=== PATIENT | female | born 1980 | race Two or more races ===

== ENCOUNTER 2022-01-30 09:01 | Emergency (ER) | payer OTHER ==
[~2022-01-30] VITALS: Ht 157.5 cm; Wt 122.5 kg
== END 2022-01-30 13:09 | disposition home or self-care (01) ==
LOC: ER 09:01
DX: B34.8 Other viral infections of unspecified site (principal); Z20.828 Contact with and (suspected) exposure to other viral communicable diseases

== ENCOUNTER 2022-04-17 09:00 | Emergency (ER) | payer OTHER ==
[~2022-04-17] VITALS: Ht 160 cm; Wt 123.8 kg
== END 2022-04-17 15:28 | disposition home or self-care (01) ==
LOC: ER 09:00
DX: K52.9 Noninfective gastroenteritis and colitis, unspecified (principal)

== ENCOUNTER 2022-05-04 20:41 | Emergency (ER) | payer OTHER ==
[~2022-05-04] VITALS: Ht 157.5 cm; Wt 122.5 kg
[2022-05-05] MEDS ORDERED: PEPCID40 MG PO (08:11)
[2022-05-05] MEDS ORDERED: CIPRO500 MG PO (08:11)
[2022-05-05] MEDS ORDERED: ZOFRAN8 MG PO (08:11)
[2022-05-05] MEDS ORDERED: LEVSIN/SL0.125 MG SL (08:11)
[2022-05-05] MEDS ORDERED: INTESTINEX680 M1 PO (08:11)
== END 2022-05-05 09:28 ==
LOC: ER 20:41
DX: R10.9 Unspecified abdominal pain (principal); R19.7 Diarrhea, unspecified; R11.10 Vomiting, unspecified; R51.9 Headache, unspecified

== ENCOUNTER 2022-07-13 09:48 | Emergency (ER) | payer OTHER ==
[~2022-07-13] VITALS: Ht 160 cm; Wt 117.9 kg
[~2022-07-13 09:48] MED LIST: CIPRO500 MG PO; INTESTINEX680 M1 PO; LEVSIN/SL0.125 MG SL; PEPCID40 MG PO; ZOFRAN8 MG PO
[2022-07-13] MEDS ORDERED: METAXALONE800 MG PO (11:43)
== END 2022-07-13 12:01 | disposition home or self-care (01) ==
LOC: ER 09:48
DX: S13.8XXA Sprain of joints and ligaments of other parts of neck, initial encounter (principal)

== ENCOUNTER 2024-09-17 21:13 | Emergency (ER) | payer OTHER ==
[~2024-09-17] VITALS: Ht 160 cm; Wt 125.2 kg
[~2024-09-17 21:13] MED LIST changes: +METAXALONE800 MG PO
[2024-09-17] MEDS ORDERED: IPRATROPIUM/ALBUTEROL SULFATE 3 ML AMPUL.NEB IH STA (23:35)
[2024-09-17] MEDS ORDERED: HYDROCODONE/CHLORPHEN P-STIREX 5 ML ML PO STA (23:36)
[2024-09-18 00:06] LABS: BASO % 0.4 % (0.1-1.2); EOS # 0.29 (0.04-0.54); EOS % 2.3 % (0.7-7.0); LYMPH # 2.94 (1.18-3.74); LYMPH % 23.8 % (19.3-53.1); MEAN PLATELET VOLUME 10.20 fl (9.4-12.4); MONO # 0.95 (0.24-0.82); MONO % 7.7 % (4.7-12.5); NEUT # 8.06 (1.56-6.13); NEUT % 65.2 % (34.0-71.1); RED CELL DISTRIBUTION WIDTH 13.2 % (11.6-14.4)
[2024-09-18 00:33] LABS: COVID-19 AG NEGATIVE (NEGATIVE)
[2024-09-18] MEDS ORDERED: TUSNEL LIQUID178 ML PO (01:31)
[2024-09-18] MEDS ORDERED: OSEL75CA PO (01:31)
[2024-09-18] MEDS ORDERED: ALBUTEROL2.5 MG/3 M IH (01:31)
[2024-09-18] MEDS ORDERED: DEXAMETHASONE SODIUM PHOSPHATE 4 MG/ML VIAL IM ONE (01:45)
[2024-09-18] MEDS ORDERED: KETOROLAC TROMETHAMINE 60 MG VIAL IM ONE (01:45)
== END 2024-09-18 01:46 | disposition home or self-care (01) ==
LOC: ER 21:53
DX: J10.1 Influenza due to other identified influenza virus with other respiratory manifestations (principal); Z20.822 Contact with and (suspected) exposure to COVID-19

== ENCOUNTER 2025-01-12 08:28 | Emergency (ER) | payer OTHER ==
[~2025-01-12] VITALS: Ht 160 cm; Wt 122.5 kg
[~2025-01-12 08:28] MED LIST changes: +ALBUTEROL2.5 MG/3 M IH; +OSEL75CA PO; +TUSNEL LIQUID178 ML PO
[2025-01-12] MEDS ORDERED: ONDANSETRON HCL 2 MG/ML VIAL IV ONE (10:00)
[2025-01-12] MEDS ORDERED: FAMOtidine 10 MG/ML (4ML VIAL) IV ONE (10:00)
[2025-01-12] MEDS ORDERED: KETOROLAC TROMETHAMINE 30 MG VIAL IV ONE (10:00)
[2025-01-12] MEDS ORDERED: 0.9 % SODIUM CHLORIDE 1,000 ML IV ONE (10:00)
[2025-01-12 10:34] LABS: BASO % 0.3 % (0.1-1.2); EOS # 0.02 (0.04-0.54); EOS % 0.3 % (0.7-7.0); LYMPH # 0.90 (1.18-3.74); LYMPH % 13.3 % (19.3-53.1); MEAN PLATELET VOLUME 10.10 fl (9.4-12.4); MONO # 0.41 (0.24-0.82); MONO % 6.1 % (4.7-12.5); NEUT # 5.40 (1.56-6.13); NEUT % 79.7 % (34.0-71.1); RED CELL DISTRIBUTION WIDTH 13.2 % (11.6-14.4)
[2025-01-12 10:46] LABS: ALT/SGPT 27.0 U/L (12-78); AST/SGOT 17.0 U/L (15-37); BILIRUBIN TOTAL 0.87 mg/dL (0.3-1.2); BUN CREA RATIO 23.0 (7.0-25.0); CREATININE SERUM 0.61 mg/dL (0.55-1.02); GFR 105.59; GLOBULINA 4.4 G/DL (2.4-3.5); GLUCOSE FASTING 144.0 mg/dL (65-100); OSMOLALITY SERUM 284.0 MOSM/KG (275-295)
[2025-01-12 10:46] LABS: URINE APPEARANCE Clear; URINE BILIRRUBIN Negative (NEGATIVE); URINE BLOOD Trace; URINE COLOR Dark Yellow; URINE GLUCOSE Negative (NEGATIVE); URINE KETONE Trace (NEGATIVE); URINE LEUKOCYTE Trace; URINE NITRATE Negative; URINE PROTEIN Trace (NEGATIVE); URINE UROBILINOGEN 1.0 E.U./dl
[2025-01-12 10:47] LABS: INR 1.02
[2025-01-12 10:50] LABS: URINE BACTERIA 1662.9 uL (0.0-1933); URINE EPITHELIAL CELLS 28.2 uL (0.0-38.8); URINE RBC 16.2 uL (0.0-20.8); URINE WBC 5.6 uL (0.0-23.2)
[2025-01-12 11:31] LABS: URINE CAST 0.00 uL (0.0-1.40)
[2025-01-12] MEDS ORDERED: PROBIOTIC1 EAC2 PO (11:40)
[2025-01-12] MEDS ORDERED: PEPCID AC20 MG PO (11:40)
[2025-01-12] MEDS ORDERED: BACTRIM DS TAB1 EACH PO (11:40)
== END 2025-01-12 13:42 | disposition home or self-care (01) ==
LOC: ER 08:29
PROVIDERS: General Practice
DX: R10.84 Generalized abdominal pain (principal); R11.2 Nausea with vomiting, unspecified